=== PATIENT | female | born 1950 | race Caucasian/White ===

== ENCOUNTER 2019-04-08 00:12 | Emergency (ER) | payer BC ==
[~2019-04-08] VITALS: Ht 149.9 cm; Wt 67.2 kg
[2019-04-08 00:17] VITALS: Ht 149.9 cm; Wt 67.2 kg
--- NOTE | 2019-04-08 00:31 | ERD ---
ER Documentation Chief Complaint Chief Complaint STATES ON AND OFF HIGH BP AT HOME X2 WEEKS, C/O HEAVYNESS TO HEAD HPI The patient is a 69-year-old female, presenting to the ER because her blood pressure has been difficult to control for the last 2 weeks, tonight she complains of head heaviness, denies syncope, near syncope, lightheadedness, neck pain, chest pain, dyspnea, abdominal pain, vomiting, dizzy, diarrhea. She does not smoke nor drink, denies any unusual stress She has been taking the irbesartan 150 mg daily since September 2018, recently started on hydralazine 10 mg 4 times daily for the last 3 days Past medical history: Hypertension, dyslipidemia Past surgical history: None ROS All systems reviewed and are negative except as per history of present illness. Allergies Allergies: Coded Allergies: No Known Allergy (Unverified , 04/08/19) Physical Exam Vitals Vital Signs Date Temp Pulse Resp B/P (MAP) Pulse Ox O2 O2 Flow FiO2 Time Delivery Rate 04/08/19 98.3 54 15 161/63 100 Room Air 03:37 (95) 04/08/19 58 17 142/68 100 Room Air 02:45 (92) 04/08/19 63 17 233/86 100 Room Air 00:45 (135) 04/08/19 97.3 64 20 238/100 99 00:17 (146) Physical Exam Const: No acute distress. Head: Atraumatic. Eyes: Normal Conjunctiva. ENT: Normal External Ears, Nose and Mouth. Neck: Full range of motion. No meningismus. Resp: Clear to auscultation bilaterally. Cardio: Regular rate and rhythm. Abd: Soft, non distended, normal bowel sounds, non tender. Skin: No petechiae or rashes. Back: No midline or flank tenderness. Ext: No cyanosis, or edema. Neur: Awake and alert. No focal deficit Psych: Normal Mood and Affect. Result Diagram: 04/08/19 0030 04/08/19 0030 Results 24 hrs Laboratory Tests Test 04/08/19 00:30 04/08/19 00:44 White Blood Count 6.5 10^3/ul Red Blood Count 4.14 10^6/ul Hemoglobin 12.3 g/dl Hematocrit 38.6 % Mean Corpuscular Volume 93.2 fl Mean Corpuscular Hemoglobin 29.7 pg Mean Corpuscular Hemoglobin Concent 31.9 g/dl Red Cell Distribution Width 13.2 % Platelet Count 216 10^3/UL Mean Platelet Volume 10.0 fl Immature Granulocytes % 0.300 % Neutrophils % 54.2 % Lymphocytes % 29.6 % Monocytes % 13.8 % Eosinophils % 1.5 % Basophils % 0.6 % Nucleated Red Blood Cells % 0.0 /100WBC Immature Granulocytes # 0.020 10^3/ul Neutrophils # 3.5 10^3/ul Lymphocytes # 1.9 10^3/ul Monocytes # 0.9 10^3/ul Eosinophils # 0.1 10^3/ul Basophils # 0.0 10^3/ul Nucleated Red Blood Cells # 0.0 10^3/ul Prothrombin Time 12.3 Sec Prothrombin Time Ratio 1.0 INR International Normalized Ratio 0.90 Activated Partial Thromboplast Time 32.6 Sec Sodium Level 138 mmol/L Potassium Level 3.7 mmol/L Chloride Level 101 mmol/L Carbon Dioxide Level 28 mmol/L Anion Gap 9 Blood Urea Nitrogen 15 mg/dl Creatinine 0.74 mg/dl Est Glomerular Filtrat Rate mL/min > 60 mL/min Glucose Level 114 mg/dl Calcium Level 9.9 mg/dl Bedside Urine pH (LAB) 6.5 Bedside Urine Protein (LAB) Negative Bedside Urine Glucose (UA) Negative Bedside Urine Ketones (LAB) Negative Bedside Urine Blood Trace-lysed Bedside Urine Nitrite (LAB) Negative Bedside Urine Leukocyte Esterase (L Negative Current Medications Medications Dose Sig/Benjamin Start Time Status Last (Trade) Ordered Route PRN Stop Time Admin Dose Reason Admin Nicardipine 200 ml @ TITRATE IV 04/08/19 DC 04/08/19 HCl 50 mls/hr 01:00 01:00 04/08/19 04:13 Nifedipine 30 mg ONCE ONCE 04/08/19 DC 04/08/19 (Procardia PO 01:00 01:00 Xl) 04/08/19 01:01 Procedures/[place] [id number] Radiology Main Line: [phone] DIAGNOSTIC IMAGING REPORT Patient: LAEXX PRAJAPATI : 1950 Age: 69 Sex: F MR #: [id number] DOS: 04/08/19 0038 Ordering MD: INNA TAVARES MD Location: E/R Room/Bed: PROCEDURE: CT Brain without contrast. CLINICAL INDICATION: Headache. TECHNIQUE: A CT of the brain was performed utilizing axial imaging from the skull base through the vertex without IV contrast. Multiplanar reformatted images were made. Images were reviewed on a PACS workstation. The CTDIvol is 39.64 mGy and the DLP is 634.23 mGycm. DICOM images are available. One or more of the following dose reduction techniques were utilized: 1.) Automated exposure control 2.) Adjustment of the mA +/- kV according to patient's size 3.) Use of iterative reconstruction technique. COMPARISON: None FINDINGS: There is no intracranial hemorrhage, mass effect, or midline shift. No extra-axial fluid collection is seen. The ventricles and sulci are normal in size and configuration. The density of the brain is normal, and the bro white matter differentiation appears well-preserved. The visualized paranasal sinuses and osseous structures are grossly unremarkable. IMPRESSION: 1. No evidence of acute intracranial pathology. 2. The brain is normal in appearance. RPTAT: [facility] Physician Xavier Date Time Electronically viewed and signed by Physician Xavier on 04/08/2019 01:03 RS/ CC: INNA TAVARES MD [id number] MEDICAL MAKING DECISION: The patient is a 69-year-old female, presenting with acute hypertensive urgency She was treated with Procardia XL 30 mg p.o., started on Cardene drip for about 15 min with good response; therefore, Cardene drip was discontinued, BP has been stable for hours in the ER The differential diagnoses considered include but are not limited to subarachnoid hemorrhage, occult trauma, CVA, meningitis, encephalitis, hypertension, tension, migraine, cluster, narcotic withdrawal, cervical spine disease. Departure Diagnosis: Primary Impression: Accelerated hypertension Condition: Stable Comments I discussed the findings with the patient. I notified the patient with via [facility], who was made aware of the lab, the treatment, the patient condition. The patient is admitted to Disclaimer: Inadvertent spelling and grammatical errors are likely due to EHR/dictation software use and do not reflect on the overall quality of patient care. Also, please note that the electronic time recorded on this note does not necessarily reflect the actual time of the patient encounter. INNA TAVARES MD Apr 08, 2019 00:31
[2019-04-08] MEDS ORDERED: niCARdipine-NS 0.1MG/ML DRIP 200 ML IV SCH (01:00)
[2019-04-08] MEDS ORDERED: NIFEdipine (XL) 30 MG TAB PO ONE (01:00)
[2019-04-08 03:37] VITALS: BP 161/63; PULSE 54; RESP 15
== END 2019-04-08 04:13 | disposition home or self-care (01) ==
LOC: E/R 00:12
DX: I10 Essential (primary) hypertension (principal); R51 Headache
CPT/HCPCS: 36415; 70450; 80048; 81003; 85025; 85610; 85730; 96374